=== PATIENT | male | born 1985 | race Caucasian/White ===

== ENCOUNTER 2019-09-26 16:05 | Emergency (ER) | payer OTHER ==
[2019-09-26] MEDS ORDERED: BUPIVACAINE/PF 0.5% 30ML VIAL ONE (16:30)
[2019-09-26] MEDS ORDERED: LIDOCAINE HCL 1% 20 ML VIAL ONE (16:30)
[2019-09-26] MEDS ORDERED: CEPHALEXIN 500 MG CAPSULE ONE (17:30)
== END 2019-09-26 17:52 | disposition home or self-care (01) ==
LOC: EDH 16:05
DX: S67.195A Crushing injury of left ring finger, initial encounter (principal); S62.635A Displaced fracture of distal phalanx of left ring finger, initial encounter for closed fracture; X58.XXXA Exposure to other specified factors, initial encounter; Y93.89 Activity, other specified; Y92.098 Other place in other non-institutional residence as the place of occurrence of the external cause; Y99.8 Other external cause status
CPT/HCPCS: 12041; 29130; 73140; 99284; J3490